=== PATIENT | male | born 1955 | race Caucasian/White ===

== ENCOUNTER 2016-06-21 11:51 | Emergency (ER) | payer OTHER ==
[~2016-06-21] VITALS: Ht 182.9 cm; Wt 81.6 kg
[~2016-06-21 11:51] MED LIST: GABA800T2 PO
--- NOTE | 2016-06-21 12:03 | NUR ---
PT IS IN ROOM #2B. DR SPEARS EVALUATED THE PT.
--- NOTE | 2016-06-21 12:22 | NUR ---
PT WAS D/C TO HOME. D/C INSTRUCTIONS GIVEN TO THE PT.
[2016-06-21 12:24] VITALS: BP 135/81
== END 2016-06-21 12:24 | disposition home or self-care (01) ==
LOC: ER 11:51
DX: L03.113 Cellulitis of right upper limb (principal); F15.10 Other stimulant abuse, uncomplicated; F10.20 Alcohol dependence, uncomplicated
CPT/HCPCS: 99284; A4663

== ENCOUNTER 2016-06-26 20:32 | Inpatient (IN) | payer OTHER ==
[~2016-06-26] VITALS: Ht 182.9 cm; Wt 68.5 kg
[2016-06-26] MEDS ORDERED: SULF1TAB48 PO (23:40)
--- NOTE | 2016-06-26 23:52 | NUR ---
PT CALLED TWO TIMES AT 2144 AND 2199 WITH NO ANSWER.PT NOW CAME APPARENTLY WAS SLEEPING SOUNDLY IN THE WAITING ROOM.
[2016-06-27] MEDS ORDERED: VANCOMYCIN IV 1,000 MG in IV DEXTROSE 5% 250 ML IV ONE ×2
[2016-06-27] MEDS ORDERED: LIDOCAINE 1%-EPI 1:100,000 20 ML VIAL TP ONE
[2016-06-27] MEDS ORDERED: SODIUM BICARBONATE 4.2 % (NEUT) 5 ML VIAL TP ONE
[2016-06-27] MEDS ORDERED: LORAZEPAM 2 MG/1 ML VIAL IV ONE
[2016-06-27] MEDS ORDERED: ONDANSETRON 4 MG/2 ML VIAL IV ONE
[2016-06-27] MEDS ORDERED: HYDROMORPHONE 1 MG/1 ML DISP.SYRIN IV ONE
[2016-06-27] MEDS ORDERED: ONDANSETRON 4 MG/2 ML VIAL ONE (00:29)
[2016-06-27] MEDS ORDERED: HYDROMORPHONE 1 MG/1 ML DISP.SYRIN ONE (00:29)
[2016-06-27] MEDS ORDERED: LORAZEPAM 2 MG/1 ML VIAL ONE (00:29)
[2016-06-27 00:38] LABS: BASOPHILS % (AUTO) 0.6 % (0.0-2.0); EOSINOPHILS # (AUTO) 0.2 K/uL (0.0-0.7); EOSINOPHILS % (AUTO) 3.6 % (0.0-7.0); HEMATOCRIT 38.3 % (40.0-50.0); HEMOGLOBIN 12.9 g/dL (14.0-18.0); LYMPHOCYTES # (AUTO) 1.8 K/uL (0.8-4.8); LYMPHOCYTES % (AUTO) 32.7 % (20.5-51.5); MEAN CORPUSCULAR HEMOGLOBIN 29.3 uug (27.0-31.0); MEAN CORPUSCULAR HGB CONC 34 g/dL (32.0-37.0); MEAN CORPUSCULAR VOLUME 87.4 fL (82.0-92.0); MONOCYTES # (AUTO) 0.6 K/uL (0.1-1.30); MONOCYTES % (AUTO) 10.8 % (0.0-11.0); NEUTROPHILS # (AUTO) 2.9 K/uL (1.8-8.9); NEUTROPHILS % (AUTO) 52.3 % (38.5-71.5); PLATELET COUNT (AUTO) 261 K/uL (150-450); RED BLOOD CELL COUNT(AUTO) 4.38 MIL/uL (4.70-6.10); RED CELL DISTRIBUTION WIDTH 13.5 % (11.5-14.5); WHITE BLOOD COUNT (AUTO) 5.5 K/uL (4.0-11.2)
[2016-06-27 00:51] LABS: ALBUMIN 3.6 g/dL (3.4-5.0); BILIRUBIN,DIRECT 0.1 mg/dL (0.0-0.2); BILIRUBIN,TOTAL 0.6 mg/dL (0.2-1.0); CALCIUM 8.4 mg/dL (8.5-10.1); CREATININE 1.1 mg/dL (0.6-1.3); TOTAL PROTEIN, SERUM 7.2 g/dL (6.4-8.2)
[2016-06-27 00:58] LABS: LACTIC ACID 2.7 mmol/L (0.4-2.0)
[2016-06-27] MEDS ORDERED: VANCOMYCIN IV 200 ML ONE (01:20)
--- NOTE | 2016-06-27 01:58 | NUR ---
Pt. admitted to [facility], under care of Dr. Solomon Belongs List completed
[2016-06-27] MEDS ORDERED: HYDROCODONE/APAP 5-325MG TABLET PO PRN (02:00)
[2016-06-27] MEDS ORDERED: ONDANSETRON 4 MG/2 ML VIAL IV PRN (02:00)
[2016-06-27] MEDS ORDERED: HYDROMORPHONE 1 MG/1 ML DISP.SYRIN IV PRN ×2 (02:00→14:00)
[2016-06-27] MEDS ORDERED: MAGNESIUM HYDROXIDE 30 ML LIQUID UDC PO PRN (02:00)
[2016-06-27] MEDS ORDERED: ACETAMINOPHEN 325 MG TABLET PO PRN (02:00)
[2016-06-27] MEDS ORDERED: Z GUARD REMEDY PASTE 57 GM TUBE TOP PRN (02:00)
[2016-06-27] MEDS ORDERED: TEMAZEPAM 15 MG CAPSULE PO PRN (02:00)
[2016-06-27] MEDS ORDERED: ENOXAPARIN SODIUM 40 MG/0.4 ML DISP.SYRIN SQ SCH ×2 (02:00→21:00)
[2016-06-27 02:30] VITALS: BP 136/79
--- NOTE | 2016-06-27 02:30 | NUR ---
PATIENT ADMITTED FROM ER FOR R ELBOW CELLULITIS. I&D WAS DONE IN ER PER REPORT GIVEN AND WOUND CULTURE WAS SENT FOR MICRO. PATIENT IS UNABLE TO RECAL MEDICAL INFORMATION AT THIS TIME. SPEECH IS SLURRED AND INCOMPREHENSIBLE AT THIS TIME. NO APPARENT PAIN OR DISCOMFORT OBSERVED, NO SIGNS OF SOB OR RESPIRATORY DISCOMFORT. PATIENT HAS CALL LIGHT WITHIN REACH, WILL CONTINUE TO MONITOR.
--- NOTE | 2016-06-27 02:45 | NUR ---
LOVENOX MEDICATION NOT GIVEN, PATIENT REFUSING AT THIS TIME. EXPLAINED IMPORTANCE OF MEDICATION AND CONTINUES TO REFUSE ADMINISTRATION.
[2016-06-27] MEDS: IV NS 1000 ML 1,000 ML IV PRN ×2 (03:12→14:50)
--- NOTE | 2016-06-27 06:44 | NUR ---
PATIENT SLEPT WELL, NO ACUTE DISTRESS THROUGH OUT SHIFT. NO C/O PAIN. VS STABLE, ALL NEEDS ATTENDED, CALL LIGHT WITHIN REACH AND SAFETY MEASURES IN PLACE.
--- NOTE | 2016-06-27 07:30 | NUR ---
PT RECEIVED IN BED SLEEPING.NO C/O PAIN NOTED.V/S ARE STABLE.MORNING ASSESSMENT DONE.PT IS AXOX3
[2016-06-27] MEDS: PANTOPRAZOLE SODIUM 40 MG TABLET.DR PO SCH (07:51)
[2016-06-27 11:19] VITALS: BP 120/73
[2016-06-27] MEDS: VANCOMYCIN IV 1 G in PREMIXED 0 EACH IV SCH (14:31)
[2016-06-27 15:28] VITALS: BP 136/89
--- NOTE | 2016-06-27 16:20 | NUR ---
Clinical pharmacy note-Vancomycin dosing per pharmacy Subjective: To start Vancomycin dosing on this patient for cellulitis Objective: BUN 20 Scr 1.1 WBC 5.5 Temp 97.8 Ht 6' Wt 151 lbs Assessment/Plan: Patient had 1 gram in ER today at 0118. Will continue Vancomycin 1 gram IV every 14hrs (second dose at 1500 today)and draw trough by 4th dose(not ordered yet) for expected trough around 16. Will monitor renal function closely to adjust the dose if needed. Will follow daily.
[2016-06-27 19:00] VITALS: BP 134/77
--- NOTE | 2016-06-27 20:32 | NUR ---
PATIENT REFUSED LOVENOX INJECTION. EXPLAINED IMPORTANCE OF MEDICATION ADMINISTRATION
[2016-06-27] MEDS ORDERED: GABAPENTIN 1600 MG PO SCH (21:00)
--- NOTE | 2016-06-27 21:43 | NUR ---
PATIENT WAS ASSISTED TO THE SHOWER ROOM. WOUND DRESSING WAS REINFORCED. WILL CONTINUE TO MONITOR.
[2016-06-28 04:00] VITALS: BP 130/79
[2016-06-28] MEDS: VANCOMYCIN IV 1 G in PREMIXED 0 EACH IV SCH (04:11)
[2016-06-28] MEDS: IV NS 1000 ML 1,000 ML IV PRN (04:11)
--- NOTE | 2016-06-28 05:44 | NUR ---
PATIENT SLEPT INTERMITTENTLY THROUGHOUT THE NIGHT, AMBULATED TO RESTROOM WITH ASSISTANCE. HAD NO C/O PAIN OR DISCOMFORT THROUGHOUT THE NIGHT. MAINTAINED CLEAN, DRY AND COMFORTABLE. CALL LIGHT WITHIN REACH, WILL CONTINUE TO MONITOR.
[2016-06-28] MEDS: PANTOPRAZOLE SODIUM 40 MG TABLET.DR PO SCH (06:04)
--- NOTE | 2016-06-28 06:12 | NUR ---
PATIENT REFUSED PROTONIX THIS MORNING STATED THAT HE "DOESN'T NEED MEDICATION BECAUSE HE DOESN'T HAVE STOMACH ISSUES." EXPLAINED IMPORTANCE OF MEDICATION REGIMEN BUT CONTINUES TO REFUSE.
[2016-06-28 06:31] LABS: BASOPHILS % (AUTO) 0.5 % (0.0-2.0); EOSINOPHILS # (AUTO) 0.2 K/uL (0.0-0.7); EOSINOPHILS % (AUTO) 3.3 % (0.0-7.0); HEMATOCRIT 38.3 % (40.0-50.0); HEMOGLOBIN 12.9 g/dL (14.0-18.0); LYMPHOCYTES # (AUTO) 1.2 K/uL (0.8-4.8); LYMPHOCYTES % (AUTO) 21.2 % (20.5-51.5); MEAN CORPUSCULAR HEMOGLOBIN 29.4 uug (27.0-31.0); MEAN CORPUSCULAR HGB CONC 34 g/dL (32.0-37.0); MEAN CORPUSCULAR VOLUME 87.6 fL (82.0-92.0); MONOCYTES # (AUTO) 0.7 K/uL (0.1-1.30); MONOCYTES % (AUTO) 11.2 % (0.0-11.0); NEUTROPHILS # (AUTO) 3.8 K/uL (1.8-8.9); NEUTROPHILS % (AUTO) 63.8 % (38.5-71.5); PLATELET COUNT (AUTO) 264 K/uL (150-450); RED BLOOD CELL COUNT(AUTO) 4.38 MIL/uL (4.70-6.10); RED CELL DISTRIBUTION WIDTH 13.1 % (11.5-14.5); WHITE BLOOD COUNT (AUTO) 5.9 K/uL (4.0-11.2)
[2016-06-28 06:44] LABS: BILIRUBIN,TOTAL 1.1 mg/dL (0.2-1.0); CALCIUM 8.6 mg/dL (8.5-10.1); CREATININE 0.9 mg/dL (0.6-1.3); PHOSPHOROUS 3.2 mg/dL (2.5-4.9); POTASSIUM 3.9 mmol/L (3.5-5.1); TOTAL PROTEIN, SERUM 6.2 g/dL (6.4-8.2)
--- NOTE | 2016-06-28 07:30 | NUR ---
PT RECEIVED IN BED AWAKE YELLING SCREAMING ,HE WANTS TO LEAVE THE HOSPITAL ,PT SAID REMOVE MY IV ,I WANT GO TO [facility] RIGHT KNOW ,CHARGE NURSE AND OUT OF TOWN COLLECTION CLERK SHAR NOTIFIED.SHAR TALK TO THE PT,PT STILL REFUSING THE CARE .DR MARIA NOTIFIED.HEPLOCK REMOVED AND NAME BAND REMOVED.
--- NOTE | 2016-06-28 07:57 | NUR ---
PT REFUSED TO SIGN THE AMA OPTICAL MODEL MAKER AND TESTER SHAR AND CHARGE NURSE MADE AWARE, PT LEFT THE HOSPITAL IN PROPER CLOTHING AND IN STABLE CONDITION.
== END 2016-06-28 08:00 | disposition left against medical advice (07) | DRG 383 ==
LOC: ER 20:35 → MED 06-27 01:58
PROVIDERS: ADMIT Internal Medicine; ATTEND Internal Medicine
PROC: 0H9DXZZ Drainage of Right Lower Arm Skin, External Approach (ICD-10-PCS; principal; 2016-06-27)
DX: L03.113 Cellulitis of right upper limb (principal); E87.2 Acidosis; D64.9 Anemia, unspecified; E86.0 Dehydration; F10.10 Alcohol abuse, uncomplicated; Z59.0 Homelessness; Z87.891 Personal history of nicotine dependence; L02.413 Cutaneous abscess of right upper limb; Z87.898 Personal history of other specified conditions
CPT/HCPCS: 36415; 73090; 83605; 83735; 84100; 85025; 85730; 87040; A4217; A4663; J1170; J1650; J2060; J2405; J3370; J3490; J7030

== ENCOUNTER 2016-08-10 02:02 | Emergency (ER) | payer OTHER ==
[~2016-08-10] VITALS: Ht 182.9 cm; Wt 77.1 kg
[~2016-08-10 02:02] MED LIST changes: -GABA800T2 PO; +SULF1TAB48 PO
--- NOTE | 2016-08-10 02:11 | NUR ---
PATIENT WALKED INTO ER C/O LEFT ARM PAIN AND SWELLING X 1 DAY... PT IS ALERT, ORIENTED X 4, NO RESP DISTRESS NOTED OR REPORTED UPON ASSESSMENT... MD AT BEDSIDE...
[2016-08-10] MEDS ORDERED: VANCOMYCIN IV 1,000 MG in IV DEXTROSE 5% 250 ML IV ONE (02:30)
[2016-08-10] MEDS ORDERED: ONDANSETRON 4 MG/2 ML VIAL IV ONE (02:30)
[2016-08-10] MEDS ORDERED: IV NORMAL SALINE 1000 ML BAG IV ONE (02:30)
[2016-08-10] MEDS ORDERED: HYDROMORPHONE 1 MG/1 ML DISP.SYRIN IV ONE (02:30)
[2016-08-10] MEDS ORDERED: HYDROMORPHONE 1 MG/1 ML DISP.SYRIN ONE (02:58)
[2016-08-10] MEDS ORDERED: ONDANSETRON 4 MG/2 ML VIAL ONE (02:58)
[2016-08-10] MEDS ORDERED: VANCOMYCIN IV 200 ML ONE (02:59)
--- NOTE | 2016-08-10 05:07 | NUR ---
Patient discharged to home in stable conditon. Written and verbal after care instructions given. Patient verbalizes understanding of instructions. Pt walked out of ER unassisted with belongings at side...
[2016-08-10 05:13] VITALS: BP 142/97
== END 2016-08-10 05:14 | disposition home or self-care (01) ==
LOC: ER 02:04
DX: L03.114 Cellulitis of left upper limb (principal); F10.20 Alcohol dependence, uncomplicated; F15.10 Other stimulant abuse, uncomplicated; Z59.0 Homelessness
CPT/HCPCS: A4663; J1170; J2405; J3370; J7030

== ENCOUNTER 2017-11-15 18:32 | Emergency (ER) | payer OTHER ==
[~2017-11-15] VITALS: Ht 182.9 cm; Wt 77.1 kg
[2017-11-15] MEDS ORDERED: HYDROCODONE/APAP 5-325MG TABLET PO ONE (19:00)
--- NOTE | 2017-11-15 19:15 | NUR ---
REPORT GIVEN FROM [facility] NURSERE[facility]
[2017-11-15] MEDS ORDERED: HYDROCODONE/APAP 5-325MG TABLET ONE (19:17)
--- NOTE | 2017-11-15 19:56 | NUR ---
PT IN BED RESTING WITH EYES CLOSED. PT IS CALM AND COOPERATIVE. PT IS AAOX4. PT CURRENTLY HAS AN ICE PACK ON LT WRIST. PT REPORTS BEING FREE OF PAIN AT THE MOMENT.
--- NOTE | 2017-11-15 21:05 | NUR ---
Patient discharged to home in stable conditon. Written and verbal after care instructions given. Patient verbalizes understanding of instructions. Patient able to ambulate unassisted with a steady gait. Patient left with all personal belongings.
[2017-11-15 21:43] VITALS: BP 147/84
== END 2017-11-15 21:05 | disposition home or self-care (01) ==
LOC: ER 18:36
DX: S69.91XA Unspecified injury of right wrist, hand and finger(s), initial encounter (principal); F15.10 Other stimulant abuse, uncomplicated; Z59.0 Homelessness; V89.9XXA Person injured in unspecified vehicle accident, initial encounter; Y93.89 Activity, other specified; Y92.89 Other specified places as the place of occurrence of the external cause; Y99.8 Other external cause status
CPT/HCPCS: 29125; 73110; 73130; 99284; A4663

== ENCOUNTER 2018-02-20 21:00 | Emergency (ER) | payer OTHER ==
[~2018-02-20] VITALS: Ht 182.9 cm; Wt 77.1 kg
[2018-02-20] MEDS: ALBUTEROL SULFATE 2.5 MG/3 ML NEBU NEB ONE (21:37)
[2018-02-20] MEDS: IPRATROPIUM BROMIDE 0.5 MG/2.5 ML NEBU NEB ONE (21:37)
[2018-02-20] MEDS: HYDROCODONE/APAP 5-325MG TABLET PO ONE (21:44)
--- NOTE | 2018-02-20 21:44 | NUR ---
Patient discharged to home in stable conditon. Written and verbal after care instructions given. Patient verbalizes understanding of instructions. Ambulated from ER with stable gait. All belongings with patient.
[2018-02-20 21:45] VITALS: BP 128/74
== END 2018-02-20 21:45 | disposition home or self-care (01) ==
LOC: ER 21:00
DX: S62.647A Nondisplaced fracture of proximal phalanx of left little finger, initial encounter for closed fracture (principal); F15.10 Other stimulant abuse, uncomplicated; Z59.0 Homelessness; V10.9XXA Unspecified pedal cyclist injured in collision with pedestrian or animal in traffic accident, initial encounter; Y93.89 Activity, other specified; Y92.89 Other specified places as the place of occurrence of the external cause; Y99.8 Other external cause status
CPT/HCPCS: 73130; A4663

== ENCOUNTER 2018-12-08 22:26 | Emergency (ER) | payer OTHER ==
[~2018-12-08] VITALS: Ht 177.8 cm; Wt 83.9 kg
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
--- NOTE | 2018-12-08 22:40 | NUR ---
DR MCELROY at bedside for MSE.
--- NOTE | 2018-12-08 22:55 | NUR ---
Pt sent down for CT. Pt shows no s/s of acute distress.
--- NOTE | 2018-12-08 22:56 | NUR ---
CALLED [facility] SPOKE TO COMPREHENSIVE ADVISOR [phone]. WILL SEND UNIT TO INTERVIEW PATIENT. INCIDENT #[id number].
--- NOTE | 2018-12-08 23:06 | NUR ---
Pt back from CT.
[2018-12-08] MEDS ORDERED: HYDROCODONE/APAP 10-325 MG TABLET ONE (23:14)
[2018-12-08] MEDS ORDERED: HYDROCODONE/APAP 10-325 MG TABLET PO ONE (23:15)
[2018-12-08 23:21] VITALS: BP 140/78
== END 2018-12-08 23:22 | disposition home or self-care (01) ==
LOC: ER 22:26
DX: S06.0X0A Concussion without loss of consciousness, initial encounter (principal); S01.01XA Laceration without foreign body of scalp, initial encounter; F15.10 Other stimulant abuse, uncomplicated; F17.200 Nicotine dependence, unspecified, uncomplicated; Z59.0 Homelessness; V23.4XXA Motorcycle driver injured in collision with car, pick-up truck or van in traffic accident, initial encounter; Y93.89 Activity, other specified; Y92.89 Other specified places as the place of occurrence of the external cause; Y99.8 Other external cause status
CPT/HCPCS: 70450; A4663

== ENCOUNTER 2019-02-21 17:50 | Emergency (ER) | payer OTHER ==
[~2019-02-21] VITALS: Ht 182.9 cm; Wt 79.4 kg
--- NOTE | 2019-02-21 19:00 | NUR ---
Assumed care of patient from day shift CLIFF Rojo.
--- NOTE | 2019-02-21 19:06 | NUR ---
Dr. Vincent on bedside for MSE.
[2019-02-21] MEDS ORDERED: FLUORESCEIN SODIUM 1 MG STRIP ONE (19:11)
[2019-02-21] MEDS ORDERED: TETRACAINE HCL 0.5% OPHT DROP 2 ML BOTTLE ONE (19:11)
[2019-02-21] MEDS ORDERED: FLUORESCEIN SODIUM 1 MG STRIP OP ONE (19:15)
[2019-02-21] MEDS ORDERED: TETRACAINE HCL 0.5% OPHT DROP 2 ML BOTTLE OP ONE (19:15)
--- NOTE | 2019-02-21 19:33 | NUR ---
[facility], spoke to [facility]. sorting and folding supervisor at the CT and patch call to Dr. Vincent.
--- NOTE | 2019-02-21 19:37 | NUR ---
Dr. Vincent at bedside.
--- NOTE | 2019-02-21 19:41 | NUR ---
MI to get a hold of opthalmologist and will call Dr. Vincent back.
--- NOTE | 2019-02-21 19:49 | NUR ---
[facility] Opthal[facility] on [facility] with Dr. Vincent.
--- NOTE | 2019-02-21 20:35 | NUR ---
Telephone call to [facility], spoke to transfer unit Bull and informed of request to transfer pt to their facility, Bull requested facesheet to be fax and done. Awaiting for return call when pt is being transfer.
--- NOTE | 2019-02-21 21:14 | NUR ---
Telephone call from [facility] uBll Gill and henri to go ahead and transfer pt to [facility] ER. ER to Er transfer and admitting Adele Caba. Will arrange transportation.
--- NOTE | 2019-02-21 21:21 | NUR ---
Telephone call to [facility] and arranged transportation. ETA 30 mins. Trip #[id number]
--- NOTE | 2019-02-21 21:49 | NUR ---
Report given to LEADERSHIP DEVELOPMENT INSTRUCTORCLIFF Capps.
--- NOTE | 2019-02-21 22:19 | NUR ---
Patient was waiting to be transported. Per [facility] patient was in the toilet. This nurse went and knock on the toilet after 20 minutes of patient not coming out of the toilet. Patient was not in the toilet and appeared to have elope from the ER. Dr. Vincent made aware.
--- NOTE | 2019-02-21 22:22 | NUR ---
Telephone call to [facility] ER, spoke to CLIFF Capps and informed that pt had elope the ER.
== END 2019-02-21 22:19 | disposition left against medical advice (07) ==
LOC: ER 17:55
DX: H54.40 Blindness, one eye, unspecified eye (principal); F15.10 Other stimulant abuse, uncomplicated; Z59.0 Homelessness; Z90.49 Acquired absence of other specified parts of digestive tract
CPT/HCPCS: A4663